=== PATIENT | male | born 1995 | race Hispanic/Latino ===

== ENCOUNTER 2021-08-09 19:43 | Observation (INO) | payer SELFPAY ==
[2021-08-09] VITALS (15 sets, daily range): BP systolic 101–124; BP diastolic 71–87
[~2021-08-09] VITALS: Ht 167.6 cm; Wt 69.0 kg
--- NOTE | 2021-08-09 19:43 | NUR ---
PT ARRIVED VIA EMS.
--- NOTE | 2021-08-09 19:44 | NUR ---
EMS NS BOLUS CONTINUED UPON ARRIVAL.
--- NOTE | 2021-08-09 19:45 | NUR ---
PT GIVEN 100 CC NS IV AND 4MG ZOFRAN IVP BY EMS ENROUTE.
[2021-08-09 20:08] LABS: HEMATOCRIT 46.6 % (39.0-50.0); HEMOGLOBIN 14.7 g/dl (14.0-18.0); IMMATURE GRANULOCYTES 0.3 % (0.0-5.0); MEAN CELL VOLUME 79.3 fL CALC (80.0-100.0); MEAN CORPUSCULAR HGB CONC 31.5 g/dL CAL (32.0-36.0); NEUT# 12.68 thou/uL (1.82-7.42); RED BLOOD COUNT 5.88 mill/uL (4.70-6.10); RED CELL DISTRI WIDTH 19.3 % (11.5-15.5)
--- NOTE | 2021-08-09 20:16 | NUR ---
PT IN ROOM ON MONITOR RECEIVING IV FLUIDS, PT REPORTS ABDOMINAL PAIN 0/10 AND THAT ABDOMINAL PAIN AND N/V HAS RESOLVED AT THIS TIME, PT HAS HYPOACTIVE BOWEL SOUNDS IN ALL QUADRANTS, PT ABDOMEN IS SOFT FLAT AND GUARDED TO PALPATION IN ALL QUADRANTS. aWAITING LAB RESULTS, PT REPORTS UNABLE TO PROVIDE URINE SPECIMEN AT THIS TIME, WILL CONT TO MONITOR. COMMUNICATION TO PT TRANSLATED BY [facility] ED REGISTRATION.
[2021-08-09 20:22] LABS: ALBUMIN 5.5 g/dL (3.2-5.0); BILIRUBIN, TOTAL 0.6 mg/dL (0.0-1.4); CREATININE 3.3 mg/dL (0.7-1.3); TOTAL PROTEIN 10.7 g/dL (6.3-8.2)
[2021-08-09 20:32] LABS: MAGNESIUM 1.6 mg/dL (1.6-2.3)
--- NOTE | 2021-08-09 21:55 | NUR ---
PT IN ROOM ON MONITOR AWAITING LAB RESULTS, CONTINUING TO MONITOR.
[2021-08-09 22:00] LABS: URINE BLOOD DIPSTICK MODERATE (NEGATIVE); URINE GLUCOSE - DIPSTICK NEGATIVE (NEGATIVE); URINE KETONE 15 mg/dL (NEGATIVE); URINE LEUK ESTERASE NEGATIVE (NEGATIVE); URINE PROTEIN - DIPSTICK 100 mg/dL (NEG-TRACE); URINE SPECIFIC GRAVITY >=1.030; URINE UROBILINOGEN - DIPSTICK 0.2 E.U./dL (0.2)
[2021-08-09 22:01] LABS: URINE BILIRUBIN - DIPSTICK SMALL (NEGATIVE); URINE COLOR DK. YELLOW; URINE NITRITE - DIPSTICK NEGATIVE (Negative)
[2021-08-09 22:12] LABS: URINE AMORPH SEDIMENT MODERATE hpf (NONE-FER); URINE MUCUS MANY hpf (NONE-FEW)
--- NOTE | 2021-08-09 22:34 | NUR ---
PT TO BE ADMITTED
--- NOTE | 2021-08-09 22:41 | NUR ---
PT IN ROOM ON MONITOR PENDING ADMISSION AND AWAITING COVID-19 TEST RESULT, WILL CONT TO MONITOR.
--- NOTE | 2021-08-09 23:13 | NUR ---
BELONGINGS LIST COMPLETED BY CLAUDIA RN AND TRANSLATION PROVIDED BY BARRY HICKS.
--- NOTE | 2021-08-09 23:15 | NUR ---
REPORT RECEIVED FROM Peyton MARIN RN. PATIENT UP TO FLOOR VIA STRETCHER ACCOMPLANIED BY Peyton MARIN RN. BEDSIDE REPORT. ASSEMENT COMPELTED AT THIS TIME. PATIENT HAS A 20 IN THE LAC INFUSING NORMAL SALINE AT 150 PER EMAR. NORMAL HEART SOUNDS, CLEAR LUNG SOUNDS BILATERLLAY. PATIENT IS MALAY SPEAKING ONLY, WRITTER ABLE TO COMMUNICATE. EDUCATED PATIENT ON PALN OF CARE. ORIENTED PATIENT TO ROOM AND CALL LIGHT SYSTEM. CALL LIGHT AND BEDSID TABLE WITHIN REACH
--- NOTE | 2021-08-09 23:43 | NUR ---
PT ADMITTED TO [facility], PT TRANSPORTED TO FLOOR VIA WHEEL CHAIR BY ED STAFF WITH LACTATED RINGERS RUNNING, JOSE SANFORD RN AT BEDSIDE.
[2021-08-10 04:06] VITALS: BP 108/60
--- NOTE | 2021-08-10 04:45 | NUR ---
PATIENT RESTING COMFORTABLY, PATIENT REFUSING TO TAKE OFF CLOTHES OR BOOTS, STATES HE IS NOT UNCOMOFRTABLE. CALL LIGHT AND BEDSIDE TABLE WITHIN REACH.
[2021-08-10 05:42] LABS: MEAN CELL VOLUME 80.4 fL CALC (80.0-100.0); MEAN CORPUSCULAR HGB 25.4 pG CALC (26.0-32.0); MEAN CORPUSCULAR HGB CONC 31.6 g/dL CAL (32.0-36.0); RED BLOOD COUNT 4.53 mill/uL (4.70-6.10)
[2021-08-10 05:53] LABS: HEMATOCRIT 36.4 % (39.0-50.0); HEMOGLOBIN 11.5 g/dl (14.0-18.0)
[2021-08-10 06:02] LABS: BUN 12 mg/dL (9-20); CHLORIDE 99 mmol/l (95-108); CPK 136 u/l (52-200); MAGNESIUM 1.9 mg/dL (1.6-2.3); POTASSIUM 3.7 mmol/l (3.5-5.1); SODIUM 137 mmol/l (137-146)
[2021-08-10 06:14] LABS: BUN/CREATININE RATIO 10 (12-20 (CALC)); CREATININE 1.2 mg/dL (0.7-1.3); GFR FOR AFR.AMER. > 60 ML/MIN (>=60 (CALC)); GFR OTHER RACES > 60 ML/MIN (>=60 (CALC))
[2021-08-10 06:15] LABS: ANION GAP 11 (6-22 (CALC)); CARBON DIOXIDE 31 mmol/l (22-30)
--- NOTE | 2021-08-10 07:00 | NUR ---
PT REPORT RECIEVED FROM LINEN ROOM WORKER
[2021-08-10 07:51] VITALS: BP 110/63
[2021-08-10 08:00] VITALS: BP 110/63
--- NOTE | 2021-08-10 08:00 | NUR ---
PT RESTING IN FOWLERS POSITION.A/OX3 PT ASSESSMENT AND VS COMPLETED. HEART RHYTHM NORMAL TELE IN PLACE. RESPIRATIONS EVEN AND UNLABORED. BOWEL SOUNDS ACTIVE. PT DENIES ANY PAIN AT THE TIME NS INFUSING TO 20 LAC. ALL SAFETY PRECATIONS IN PLACE WITH CALL LIGHT IN REACH.
--- NOTE | 2021-08-10 12:21 | NUR ---
PT RESTING IN FOWLERS POSITION, PT DENIES ADDITIONAL NEEDS AT THE TIME. ALL SAFETY PRECAUTIONS IN PLACE.
--- NOTE | 2021-08-10 15:10 | NUR ---
Discharge instructions given. Patient verbalizes understanding of same. Discharged in stable condition via Wheelchair to Home with staff. All belongings sent with pt. iv removed.
== END 2021-08-10 15:09 | disposition home or self-care (01) | DRG 923 ==
LOC: ED 19:43 → ED-I 22:18 → ED 22:25 → MS2 22:26
PROVIDERS: Family Medicine; ADMIT Hospitalist
DX: T67.5XXA Heat exhaustion, unspecified, initial encounter (principal); N17.9 Acute kidney failure, unspecified; E86.0 Dehydration; M62.82 Rhabdomyolysis; X30.XXXA Exposure to excessive natural heat, initial encounter; Y93.H3 Activity, building and construction; Y99.0 Civilian activity done for income or pay
CPT/HCPCS: G0378